=== PATIENT | male | born 1970 ===

== ENCOUNTER → 2020-03-28 | Outpatient (CLI) | payer BC | LOC: LAB SHORT 12:26 → PLD 12:26 | DX: D22.5 Melanocytic nevi of trunk (principal) | CPT/HCPCS: 88305 ==

== ENCOUNTER 2021-02-28 06:55 | Day surgery (SDC) | payer BC ==
[~2021-02-28] VITALS: Ht 188 cm; Wt 115.2 kg
[~2021-02-28 06:55] MED LIST: ALLEGRA ALLERG180 MG PO; ALLO300 PO; ASPI81CH PO; ATOR40TA PO; CARV25 PO; FINA5 PO; LISI20 PO; MULVITA PO; OMEP20ER PO; SUMA25 PO; TART CHERRY PO; UBID100 PO; Vitamin C100 M1 PO
--- NOTE | 2021-02-28 07:51 | NUR ---
History, Chart, Medications and Allergies reviewed before start of procedure.Patient confirms NPO status and agrees with scheduled surgery. Patient states colon prep results clear.
--- NOTE | 2021-02-28 08:03 | NUR ---
02/28/21 0803 Chris Piña History, Chart, Medications and Allergies reviewed before start of procedure. MONITOR INTACT WITH CONTINUOUS PULSE OXIMETRY AND INTERMITTENT BP. EKG BEING MONITORED DURING PROCEDURE. O2 VIA N/C INTACT THROUGHOUT SEDATION/PROCEDURE. Bite Block Placed, WILL BE REMOVED AFTER PROCEDURE. See Anesthesia record/DR ZALDIVAR.
--- NOTE | 2021-02-28 09:01 | NUR ---
Discharge instructions reviewed with patient. Patient verbalizes understanding. Copy given to patient to take home. Patient States Post-Procedure ride home has been arranged. Discharged via wheelchair to private car for ride home.
== END 2021-02-28 09:07 | disposition home or self-care (01) ==
LOC: ORSCMMR 06:55 → ORD 08:30 → ORSCMMR 09:07
PROVIDERS: Surgery
PROC: 0DB78ZX Excision of Stomach, Pylorus, Via Natural or Artificial Opening Endoscopic, Diagnostic (ICD-10-PCS; principal; 2021-02-28 08:30)
PROC: 0DJD8ZZ Inspection of Lower Intestinal Tract, Via Natural or Artificial Opening Endoscopic (ICD-10-PCS; principal; 2021-02-28 08:30)
PROC: 0DB48ZX Excision of Esophagogastric Junction, Via Natural or Artificial Opening Endoscopic, Diagnostic (ICD-10-PCS; principal; 2021-02-28 08:30)
DX: Z12.11 Encounter for screening for malignant neoplasm of colon (principal); K21.9 Gastro-esophageal reflux disease without esophagitis; K20.90 Esophagitis, unspecified without bleeding; K29.70 Gastritis, unspecified, without bleeding; I10 Essential (primary) hypertension; G47.33 Obstructive sleep apnea (adult) (pediatric); E11.9 Type 2 diabetes mellitus without complications; E78.00 Pure hypercholesterolemia, unspecified; Z79.899 Other long term (current) drug therapy; Z79.82 Long term (current) use of aspirin
CPT/HCPCS: 43239; G0121; 82947; 88305; 88342; J2704; J7120